=== PATIENT | male | born 1990 | race Caucasian/White ===

== ENCOUNTER 2024-11-01 08:27 | Outpatient (CLI) | payer OTHER, SELFPAY | END 2024-11-01 08:28 | disposition home or self-care (01) | PROVIDERS: PCP Family Medicine; Visit Provider Family Medicine | DX: I10 Essential (primary) hypertension (principal); F41.8 Other specified anxiety disorders; Z13.220 Encounter for screening for lipoid disorders; Z13.29 Encounter for screening for other suspected endocrine disorder | CPT/HCPCS: 80061; 80076; 84443 ==

== ENCOUNTER 2025-05-13 13:20 | Outpatient (CLI) | payer OTHER, SELFPAY | END 2025-05-13 13:21 | disposition home or self-care (01) | LOC: NFLDREF 05-15 13:42 | PROVIDERS: PCP Family Medicine; Referring Provider Family Medicine; Visit Provider Family Medicine | DX: I10 Essential (primary) hypertension (principal) | CPT/HCPCS: 80048 ==